=== PATIENT | female | born 1975 | race Two or more races ===

== ENCOUNTER 2018-03-30 21:16 | Emergency (ER) | payer OTHER ==
[~2018-03-30] VITALS: Ht 167.6 cm; Wt 56.7 kg
[~2018-03-30 21:16] MED LIST: MOTRIN800 MG PO; ORPH100T PO
[2018-03-31] MEDS ORDERED: ADVIL200 MG PO (05:39)
[2018-03-31] MEDS ORDERED: ORASEP SPRAY30 ML MM (05:39)
[2018-03-31] MEDS ORDERED: PEPCID40 MG PO (05:49)
[2018-03-31] MEDS ORDERED: CEFUROXIME500 MG PO (05:49)
== END 2018-03-31 07:41 | disposition home or self-care (01) ==
LOC: ER 21:16
DX: J06.9 Acute upper respiratory infection, unspecified (principal); J02.9 Acute pharyngitis, unspecified